=== PATIENT | male | born 1945 | race Caucasian/White ===

== ENCOUNTER 2023-03-04 10:33 | Day surgery (SDC) | payer MEDICARE ==
[2023-02-28 15:23] VITALS: BMI 29.2
[2023-03-04] MEDS ORDERED: Lidocaine 2% MPF 10 ML AMP (For Epidural Use) ONE (11:26)
[2023-03-04] MEDS ORDERED: PROPOFOL 40 ML ONE (11:26)
== END 2023-03-04 12:48 | disposition home or self-care (01) ==
LOC: CSHSDC 10:33
PROVIDERS: ATTEND Internal Medicine Gastroenterology
PROC: 0DJD8ZZ Inspection of Lower Intestinal Tract, Via Natural or Artificial Opening Endoscopic (ICD-10-PCS; principal; 2023-03-04)
DX: K64.8 Other hemorrhoids (principal); R10.9 Unspecified abdominal pain; I10 Essential (primary) hypertension; Z86.010 Personal history of colon polyps; Z85.038 Personal history of other malignant neoplasm of large intestine; Z98.0 Intestinal bypass and anastomosis status; Z79.82 Long term (current) use of aspirin; Z79.899 Other long term (current) drug therapy
CPT/HCPCS: J2704